=== PATIENT | female | born 1990 | race American Indian/Alaskan Native ===

== ENCOUNTER 2016-11-13 23:30 | Emergency (ER) | payer MEDICAID ==
[2016-11-13 23:44] VITALS: BP 109/76
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
[2016-11-14 00:29] LABS: CHLORIDE,CL 108 mmol/L (101-111); SODIUM,NA 143 mmol/L (135-145)
[2016-11-14] MEDS ORDERED: Iopamidol 612 MG/ML 75 ML Bottle IVPUSH ONE (00:36)
[2016-11-14] MEDS ORDERED: Acetaminophen/HYDROcodone 325-10 MG Tab PO ONE (01:25)
== END 2016-11-14 01:34 | disposition home or self-care (01) ==
LOC: DL.ED 23:30
DX: G89.18 Other acute postprocedural pain (principal); R10.84 Generalized abdominal pain; K59.01 Slow transit constipation; E11.9 Type 2 diabetes mellitus without complications; F17.210 Nicotine dependence, cigarettes, uncomplicated
CPT/HCPCS: 36415; 74177; 80053; 84703; 85025; 99285; A9270; Q9967

== ENCOUNTER 2016-11-15 16:44 | Emergency (ER) | payer MEDICAID ==
[2016-11-15 17:32] LABS: CHLORIDE,CL 108 mmol/L (101-111); SODIUM,NA 141 mmol/L (135-145)
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
[2016-11-15] MEDS ORDERED: Iopamidol 612 MG/ML 75 ML Bottle IVPUSH ONE (18:01)
[2016-11-15] MEDS ORDERED: Acetaminophen/HYDROcodone 325-10 MG Tab PO ONE (19:21)
[2016-11-15 19:31] VITALS: BP 116/78
== END 2016-11-15 19:33 | disposition home or self-care (01) ==
LOC: DL.ED 16:44
DX: S30.1XXA Contusion of abdominal wall, initial encounter (principal); K21.9 Gastro-esophageal reflux disease without esophagitis; E11.9 Type 2 diabetes mellitus without complications; Z98.51 Tubal ligation status; F17.210 Nicotine dependence, cigarettes, uncomplicated; Z88.5 Allergy status to narcotic agent; Z79.4 Long term (current) use of insulin; Y83.8 Other surgical procedures as the cause of abnormal reaction of the patient, or of later complication, without mention of misadventure at the time of the procedure
CPT/HCPCS: 36415; 74177; 80053; 80305; 81001; 81025; 82272; 85025; 99284; A9270; Q9967

== ENCOUNTER 2017-10-31 22:23 | Emergency (ER) | payer MEDICAID ==
[2017-10-31 23:36] LABS: CHLORIDE,CL 104 mmol/L (101-111); SODIUM,NA 137 mmol/L (135-145)
[2017-10-31 23:37] LABS: ACETAMINOPHEN < 10.0
[2017-10-31 23:58] VITALS: BP 111/75
[2017-11-01] MEDS ORDERED: Potassium Chloride 10 MEQ in Premix Bag 1 BAG IV ONE (00:28)
[2017-11-01] MEDS ORDERED: Ondansetron 4 MG/2 ML SDV IV ONE (00:29)
[2017-11-01] MEDS ORDERED: Sodium Chloride 0.9% 1,000 ML IV SCH (00:30)
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
--- NOTE | 2017-11-01 13:56 | EKG ---
10/31/2017- KENDALL CASTILLO - FINDINGS: EKG shows a heart rate of 67 beats per minute. Normal sinus rhythm. Normal EKG. [facility] /[id number]
== END 2017-11-01 02:34 ==
LOC: DL.ED 22:23
DX: T45.0X2A Poisoning by antiallergic and antiemetic drugs, intentional self-harm, initial encounter (principal); K21.9 Gastro-esophageal reflux disease without esophagitis; E11.9 Type 2 diabetes mellitus without complications; F17.210 Nicotine dependence, cigarettes, uncomplicated; Z88.5 Allergy status to narcotic agent; Z79.4 Long term (current) use of insulin; X83.8XXA Intentional self-harm by other specified means, initial encounter
CPT/HCPCS: 36415; 80053; 80305; 85025; 93005; 96361; 96365; 96375; 99285; G0480; J2405; J3480; J7030

== ENCOUNTER 2018-01-15 16:37 | Emergency (ER) | payer MEDICAID ==
[2018-01-15 16:53] VITALS: BP 133/72
[2018-01-15] MEDS ORDERED: Amoxicillin/Clavulanate K 875-125 MG Tab PO ONE (17:10)
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
== END 2018-01-15 17:21 | disposition home or self-care (01) ==
LOC: DL.ED 16:37
DX: S71.152A Open bite, left thigh, initial encounter (principal); E11.9 Type 2 diabetes mellitus without complications; Z88.5 Allergy status to narcotic agent; Z79.4 Long term (current) use of insulin; F17.210 Nicotine dependence, cigarettes, uncomplicated; W54.0XXA Bitten by dog, initial encounter
CPT/HCPCS: 99283; A9270-GY

== ENCOUNTER 2019-03-24 17:39 | Emergency (ER) | payer MEDICAID, OTHER ==
[2019-03-24 17:48] VITALS: BP 151/85; PULSE 69
[2019-03-24 18:35] LABS: ANION GAP 10.7; CHLORIDE,CL 104 mmol/L (101-111); SODIUM,NA 136 mmol/L (135-145)
--- NOTE | 2019-03-24 18:42 | EDM.PDOC ---
ED HPI GENERAL MEDICAL PROBLEM - General Chief Complaint: Abdominal Pain Stated Complaint: ABD PAIN/DIARREA WITH BLOOD Time Seen by Provider: 03/24/19 18:00 Source of Information: Reports: Patient History Limitations: Reports: No Limitations - History of Present Illness INITIAL COMMENTS - FREE TEXT/NARRATIVE: ED with c/o of intermittent sharp abdominal pain, pointing to epigastric area. Frequent diarrhea x 24 hours that looks like may be bloody. Reports fever last night none since some nausea though eating cheese crackers and drinking soda on arrival. No urinary c/o. No vomiting. Has not been taking insulin for greater than 2 weeks as RX out and has not been to [facility] to get refill. Has not been checking sugars. LMP one week ago. Abdomen Pain Score (Numeric/FACES): 8 - Related Data Allergies Allergy/AdvReac Type Severity Reaction Status Date / Time codeine Allergy Itching Verified 03/24/19 17:49 Home Meds: Home Meds Insulin Aspart [NovoLOG] 20 unit SUBCUT DAILY 11/15/16 [History] Insulin Detemir [Levemir] 20 unit SQ DAILY 11/15/16 [History] Past Medical History - Past Health History Medical/Surgical History: Denies Medical/Surgical History HEENT History: Reports: None Cardiovascular History: Reports: Heart Murmur Respiratory History: Reports: None Gastrointestinal History: Reports: GERD Genitourinary History: Reports: None Other Genitourinary History: "kidneys arent functioning very good" FI[employer] SC[employer]ER History: Reports: Musculoskeletal History: Reports: None Neurological History: Reports: None Psychiatric History: Reports: None Endocrine/Metabolic History: Reports: Diabetes, Type II Hematologic History: Reports: Blood Transfusion(s) Immunologic History: Reports: None Oncologic (Cancer) History: Reports: None Dermatologic History: Reports: None - Infectious Disease History Infectious Disease History: Reports: None - Past Surgical History Head Surgeries/Procedures: Reports: None HEENT Surgical History: Reports: None Cardiovascular Surgical History: Reports: None GI Surgical History: Reports: None Female Surgical History: Reports: Section, Tubal Ligation Musculoskeletal Surgical History: Reports: None Social & Family History - Tobacco Use Smoking Status *Q: Current Every Day Smoker Years of Tobacco use: 16 Packs/Tins Daily: 0.2 - Caffeine Use Caffeine Use: Reports: Coffee - Alcohol Use Date of Last Drink: 03/22/19 - Recreational Drug Use Recreational Drug Use: No ED ROS GENERAL - Review of Systems Review Of Systems: Comprehensive ROS is negative, except as noted in HPI. ED EXAM, GI/ABD - Physical Exam Exam: See Below Exam Limited By: No Limitations General Appearance: Alert, Mild Distress Eyes: Bilateral: EOMI Ears: Normal External Exam, Normal TMs Nose: Normal Inspection Throat/Mouth: Normal Inspection, Perioral Cyanosis Head: Atraumatic Neck: Normal Inspection Respiratory/Chest: No Respiratory Distress, Lungs Clear Cardiovascular: Normal Peripheral Pulses, Regular Rate, Rhythm GI/Abdominal Exam: Normal Bowel Sounds, Soft, Tender (mild upper) Rectal (Female) Exam: Normal Rectal Tone, Heme - Stool Extremities: Normal Inspection Neurological: Alert, Oriented Psychiatric: Normal Affect Skin Exam: Warm, Dry, Intact, Normal Color Course - Vital Signs Last Recorded V/S: Last Vital Signs Temp 98.5 F 03/24/19 17:45 Pulse 69 03/24/19 17:45 Resp 20 03/24/19 17:45 BP 151/85 H 03/24/19 17:45 Pulse Ox 100 03/24/19 17:45 - Orders/Labs/Meds Labs: Laboratory Tests 03/24/19 03/24/19 03/24/19 Range/Units 18:05 18:05 18:05 WBC 5.9 (5.0-10.0) 10^3/uL RBC 4.63 (4.2-5.4) 10^6/uL Hgb 9.5 L (12.0-16.0) g/dL Hct 32.1 L (37.0-47.0) % MCV 69.3 L (80-100) fL MCH 20.5 L (27.0-34.0) pg MCHC 29.6 L (33.0-35.0) g/dL Plt Count 362 (150-450) 10^3/uL Neut % (Auto) 46.4 (42.2-75.2) % Lymph % (Auto) 30.4 (20.5-50.1) % [place] % (Auto) 16.2 H (2-8) % Eos % (Auto) 6.5 H (1.0-3.0) % Baso % (Auto) 0.5 (0.0-1.0) % Sodium 136 (135-145) mmol/L Potassium 3.7 (3.6-5.0) mmol/L Chloride 104 (101-111) mmol/L Carbon Dioxide 25.0 (21.0-31.0) mmol/L Anion Gap 10.7 BUN 11 (7-18) mg/dL Creatinine 0.6 (0.6-1.3) mg/dL Est Cr Clr Drug Dosing 129.51 mL/min Estimated GFR (MDRD) > 60 BUN/Creatinine Ratio 18.33 Glucose 116 H (74-105) mg/dL POC Glucose (70-105) mg/dl Calcium 8.7 (8.4-10.2) mg/dl Total Bilirubin 0.6 (0.2-1.0) mg/dL AST 66 H (10-42) IU/L ALT 131 H (10-60) IU/L Alkaline Phosphatase 76 (42-121) IU/L Total Protein 7.5 (6.7-8.2) g/dl Albumin 3.7 (3.2-5.5) g/dl Globulin 3.8 Albumin/Globulin Ratio 0.97 Amylase 36 (28-100) U/L Lipase 29 (22-51) U/L Urine Color (YELLOW) Urine Appearance (CLEAR) Urine pH (5.0-9.0) Ur Specific [place] (1.005-1.030) Urine Protein (NEGATIVE) Urine Glucose (UA) (NEGATIVE) Urine Ketones (NEGATIVE) Urine Occult Blood (NEGATIVE) Urine Nitrite (NEGATIVE) Urine Bilirubin (NEGATIVE) Urine Urobilinogen (0.2-1.0) mg/dL Ur Leukocyte Esterase (NEGATIVE) Urine HCG, Qual Urine Opiates Screen (NEGATIVE) Ur Oxycodone Screen (NEGATIVE) Urine Methadone Screen (NEGATIVE) Ur Barbiturates Screen (NEGATIVE) U Tricyclic Antidepress (NEGATIVE) Ur Phencyclidine Scrn (NEGATIVE) Ur Amphetamine Screen (NEGATIVE) U Methamphetamines Scrn (NEGATIVE) Urine MDMA Screen (NEGATIVE) U Benzodiazepines Scrn (NEGATIVE) Urine Cocaine Screen (NEGATIVE) U Marijuana (THC) Screen (NEGATIVE) 03/24/19 03/24/19 03/24/19 Range/Units 18:22 18:31 18:31 WBC (5.0-10.0) 10^3/uL RBC (4.2-5.4) 10^6/uL Hgb (12.0-16.0) g/dL Hct (37.0-47.0) % MCV (80-100) fL MCH (27.0-34.0) pg MCHC (33.0-35.0) g/dL Plt Count (150-450) 10^3/uL Neut % (Auto) (42.2-75.2) % Lymph % (Auto) (20.5-50.1) % [place] % (Auto) (2-8) % Eos % (Auto) (1.0-3.0) % Baso % (Auto) (0.0-1.0) % Sodium (135-145) mmol/L Potassium (3.6-5.0) mmol/L Chloride (101-111) mmol/L Carbon Dioxide (21.0-31.0) mmol/L Anion Gap BUN (7-18) mg/dL Creatinine (0.6-1.3) mg/dL Est Cr Clr Drug Dosing mL/min Estimated GFR (MDRD) BUN/Creatinine Ratio Glucose (74-105) mg/dL POC Glucose 112 H (70-105) mg/dl Calcium (8.4-10.2) mg/dl Total Bilirubin (0.2-1.0) mg/dL AST (10-42) IU/L ALT (10-60) IU/L Alkaline Phosphatase (42-121) IU/L Total Protein (6.7-8.2) g/dl Albumin (3.2-5.5) g/dl Globulin Albumin/Globulin Ratio Amylase (28-100) U/L Lipase (22-51) U/L Urine Color Yellow (YELLOW) Urine Appearance Clear (CLEAR) Urine pH 5.5 (5.0-9.0) Ur Specific [place] 1.025 (1.005-1.030) Urine Protein Negative (NEGATIVE) Urine Glucose (UA) Negative (NEGATIVE) Urine Ketones Negative (NEGATIVE) Urine Occult Blood Negative (NEGATIVE) Urine Nitrite Negative (NEGATIVE) Urine Bilirubin Negative (NEGATIVE) Urine Urobilinogen 0.2 (0.2-1.0) mg/dL Ur Leukocyte Esterase Negative (NEGATIVE) Urine HCG, Qual Negative Urine Opiates Screen (NEGATIVE) Ur Oxycodone Screen (NEGATIVE) Urine Methadone Screen (NEGATIVE) Ur Barbiturates Screen (NEGATIVE) U Tricyclic Antidepress (NEGATIVE) Ur Phencyclidine Scrn (NEGATIVE) Ur Amphetamine Screen (NEGATIVE) U Methamphetamines Scrn (NEGATIVE) Urine MDMA Screen (NEGATIVE) U Benzodiazepines Scrn (NEGATIVE) Urine Cocaine Screen (NEGATIVE) U Marijuana (THC) Screen (NEGATIVE) 03/24/19 Range/Units 18:31 WBC (5.0-10.0) 10^3/uL RBC (4.2-5.4) 10^6/uL Hgb (12.0-16.0) g/dL Hct (37.0-47.0) % MCV (80-100) fL MCH (27.0-34.0) pg MCHC (33.0-35.0) g/dL Plt Count (150-450) 10^3/uL Neut % (Auto) (42.2-75.2) % Lymph % (Auto) (20.5-50.1) % [place] % (Auto) (2-8) % Eos % (Auto) (1.0-3.0) % Baso % (Auto) (0.0-1.0) % Sodium (135-145) mmol/L Potassium (3.6-5.0) mmol/L Chloride (101-111) mmol/L Carbon Dioxide (21.0-31.0) mmol/L Anion Gap BUN (7-18) mg/dL Creatinine (0.6-1.3) mg/dL Est Cr Clr Drug Dosing mL/min Estimated GFR (MDRD) BUN/Creatinine Ratio Glucose (74-105) mg/dL POC Glucose (70-105) mg/dl Calcium (8.4-10.2) mg/dl Total Bilirubin (0.2-1.0) mg/dL AST (10-42) IU/L ALT (10-60) IU/L Alkaline Phosphatase (42-121) IU/L Total Protein (6.7-8.2) g/dl Albumin (3.2-5.5) g/dl Globulin Albumin/Globulin Ratio Amylase (28-100) U/L Lipase (22-51) U/L Urine Color (YELLOW) Urine Appearance (CLEAR) Urine pH (5.0-9.0) Ur Specific [place] (1.005-1.030) Urine Protein (NEGATIVE) Urine Glucose (UA) (NEGATIVE) Urine Ketones (NEGATIVE) Urine Occult Blood (NEGATIVE) Urine Nitrite (NEGATIVE) Urine Bilirubin (NEGATIVE) Urine Urobilinogen (0.2-1.0) mg/dL Ur Leukocyte Esterase (NEGATIVE) Urine HCG, Qual Urine Opiates Screen Negative (NEGATIVE) Ur Oxycodone Screen Negative (NEGATIVE) Urine Methadone Screen Negative (NEGATIVE) Ur Barbiturates Screen Negative (NEGATIVE) U Tricyclic Antidepress Negative (NEGATIVE) Ur Phencyclidine Scrn Negative (NEGATIVE) Ur Amphetamine Screen Negative (NEGATIVE) U Methamphetamines Scrn Negative (NEGATIVE) Urine MDMA Screen Negative (NEGATIVE) U Benzodiazepines Scrn Negative (NEGATIVE) Urine Cocaine Screen Negative (NEGATIVE) U Marijuana (THC) Screen Negative (NEGATIVE) Meds: Medications Discontinued Medications Generic Name Dose Route Start Last Admin Trade Name Freq PRN Reason Stop Dose Admin Famotidine 20 mg 03/24/19 18:55 03/24/19 19:03 Pepcid IVPUSH 03/24/19 18:56 20 mg ONETIME ONE Administration Fentanyl 25 mcg 03/24/19 19:56 03/24/19 20:04 Sublimaze IVPUSH 03/24/19 19:57 25 mcg ONETIME ONE Administration Sodium Chloride 1,000 mls @ 999 mls/hr 03/24/19 18:55 03/24/19 19:03 Normal Saline IV 03/24/19 19:55 999 mls/hr .BOLUS ONE Administration Iopamidol 75 ml 03/24/19 18:55 03/24/19 19:11 Isovue-300 (61%) IVPUSH 03/24/19 18:56 75 ml ONETIME ONE Administration Departure - Departure Time of Disposition: 20:13 Disposition: Home, Self-Care 01 Condition: Good Clinical Impression: Gall stones Diarrhea Qualifiers: Diarrhea type: unspecified type Qualified Code(s): R19.7 - Diarrhea, unspecified Abdominal pain Qualifiers: Abdominal location: generalized Qualified Code(s): R10.84 - Generalized abdominal pain - Discharge Information *PRESCRIPTION DRUG MONITORING PROGRAM REVIEWED*: No *COPY OF PRESCRIPTION DRUG MONITORING REPORT IN PATIENT SIOBHAN: No Instructions: Cholelithiasis, Abdominal Pain, Adult, [id number] Forms: ED Department Discharge Additional Instructions: low fat diet bland diet clinic follow up with primary care monitor blood sugars omeprazole 20mg daily
[2019-03-24] MEDS: Famotidine 20 MG/2 ML SDV IVPUSH ONE (19:03)
[2019-03-24] MEDS: Sodium Chloride 0.9% 1,000 ML IV ONE (19:03)
[2019-03-24] MEDS: Iopamidol 612 MG/ML 75 ML Bottle IVPUSH ONE (19:11)
[2019-03-24] MEDS: fentaNYL 100 MCG/2 ML SDV IVPUSH ONE (20:04)
== END 2019-03-24 20:25 | disposition home or self-care (01) ==
LOC: DL.ED 17:39
DX: K80.80 Other cholelithiasis without obstruction (principal); E11.9 Type 2 diabetes mellitus without complications; K21.9 Gastro-esophageal reflux disease without esophagitis; F17.210 Nicotine dependence, cigarettes, uncomplicated; Z79.4 Long term (current) use of insulin; Z88.5 Allergy status to narcotic agent
CPT/HCPCS: 36415; 74177; 80053; 80305; 81003; 81025; 82150; 82272; 82962; 83690; 85025; 87045; 87046; 87493; 87899; 96361; 96374; 96375; 99284; J3010; J3490; J7030; Q9967

== ENCOUNTER 2019-05-03 06:51 | Day surgery (SDC) | payer MEDICAID, OTHER ==
[~2019-05-03 06:51] MED LIST: Dextrose 5%-0.45% NaCl 1,000 ML IV SCH; Midazolam 1 MG/ML 2 ML SDV ONE; Sodium Chloride 0.9% 10 ML Syringe FLUSH PRN; fentaNYL 100 MCG/2 ML SDV ONE
[2019-05-03] MEDS ORDERED: fentaNYL 100 MCG/2 ML SDV IV ONE ×3 (06:52→07:54)
[2019-05-03] MEDS ORDERED: Midazolam 1 MG/ML 2 ML SDV IV ONE ×3 (06:52→07:55)
--- NOTE | 2019-05-03 09:19 | OR ---
DATE: 05/03/2019 PROCEDURES: Esophagogastroduodenoscopy and multiple pinch biopsies. INSTRUMENT USED: [id number] Olympus video panendoscope. PREMEDICATIONS: No oral or topical anesthesia used. Fentanyl 100 mcg intravenous, Versed 2 mg intravenous. The procedure was done under pulse oximetry, BP recording, and collision worker. INDICATION: The patient with chronic hepatitis C and iron-deficiency anemia, with persistent abdominal pain unexplained. Esophagogastroduodenoscopy is performed for detection of any evidence for varices, to look for any erosive lesions, malignancy also under consideration, small bowel biopsies to be obtained if indicated. PROCEDURE IN DETAIL: The scope was passed with ease. Adequate visualization of the esophagus was made from proximal to distal areas. No upper esophageal lesions identified. No distal esophageal stricture. No uphill or downhill esophageal varices. No Chasity-Toure tear. No evidence of erosive esophagitis by Blanco criteria. No esophageal polyp or tumor mass identified. Z-line was seen at around 40 cm distal to the oral verge, configuration consistent with grade 1 by ZAP classification. No proximal gastric varices noted. Gastric fundus examination by retroflexion showed no polypoid lesions. No gastric ulcer, malignant mass, or vascular ectasia identified. Duodenal bulb showed no ulcer. Visualized second part of the duodenum was unremarkable. Multiple pinch biopsies, 4 in number, were taken from different areas of the second part of the duodenum, and tissues were also obtained from the duodenal bulb at 9 o'clock and 12 o'clock positions and sent for any histopathologic evidence of celiac disease. Multiple pinch biopsies were taken from the gastric antrum and proximal body and sent for PyloriTek test for H pylori and histopathology. No bleeding was noted from any of the visualized areas at the completion of examination. Photographs were taken of the duodenal bulb, gastric antrum, fundus, and distal esophagus. IMPRESSION: Normal study. The patient tolerated the procedure well. [facility] /[id number]
[2019-05-03 12:42] VITALS: BP 108/70; PULSE 55
== END 2019-05-03 10:55 | disposition home or self-care (01) ==
LOC: DL.ENDO 06:51
PROVIDERS: ATTEND Internal Medicine Gastroenterology
DX: K29.50 Unspecified chronic gastritis without bleeding (principal); B18.2 Chronic viral hepatitis C; D50.9 Iron deficiency anemia, unspecified; Z88.5 Allergy status to narcotic agent
CPT/HCPCS: 43239; 87077; J2250; J3010; J7042

== ENCOUNTER 2019-05-07 06:11 | Day surgery (SDC) | payer MEDICAID, OTHER ==
[2019-05-07] MEDS ORDERED: Midazolam 1 MG/ML 2 ML SDV IV ONE ×7 (06:12→07:01)
[2019-05-07] MEDS ORDERED: Midazolam 1 MG/ML 2 ML SDV ONE (06:12)
[2019-05-07] MEDS ORDERED: fentaNYL 100 MCG/2 ML SDV IV ONE ×6 (06:12→07:04)
[2019-05-07] MEDS ORDERED: fentaNYL 100 MCG/2 ML SDV ONE (06:13)
[2019-05-07] MEDS ORDERED: Sodium Chloride 0.9% 10 ML Syringe FLUSH PRN (06:42)
[2019-05-07] MEDS ORDERED: Dextrose 5%-0.45% NaCl 1,000 ML IV SCH (06:45)
--- NOTE | 2019-05-07 07:49 | OR ---
DATE: 05/07/2019 PROCEDURE: Total colonoscopy. INSTRUMENT USED: [id number]-[id number] Olympus video colonoscope. PREMEDICATIONS: Fentanyl 175 mcg intravenous, Versed 4 mg intravenous. The procedure was done under pulse oximetry, BP recording, and underwater roboticist. INDICATION: The patient with rectal bleeding and abdominal pain. Recent CT suggestive of colonic wall thickening in distal left colon. Colonoscopic examination is done for detection of any polypoid lesions and removal, endoscopic hemostasis therapy if needed. DESCRIPTION OF PROCEDURE: Initial rectal exam was unremarkable. Rigid anoscopy was normal. The colonoscope was passed with ease up to the ileocecal area. Photographs were taken of the normal-appearing cecum, identified by landmarks of appendiceal orifice and double-bulged ileocecal folds. No bleeding was noted from any of the visualized areas at the commencement of the examination. The bowel preparation was inadequate in the right colon, Graford scale 1 and in other regions Graford scale 2. No stricture. No vascular ectasia. No large isolated ulcerations seen. No evidence of diffuse inflammatory bowel disease in the form of friability, contact bleeding, or ulcerations. No polyp or tumor mass identified. Probing the proximal sides of folds and flexures using adequate distention and clearing up the stool material, withdrawal of the scope was made, cecum to rectum time over 6 minutes. No bleeding was noted from any of the visualized areas at the completion of examination. IMPRESSION: Normal study. The patient tolerated the procedure well. [facility] /[id number]
[2019-05-07 10:36] VITALS: BP 108/73; PULSE 72
== END 2019-05-07 09:19 | disposition home or self-care (01) ==
LOC: DL.ENDO 06:11
PROVIDERS: ATTEND Internal Medicine Gastroenterology
DX: K62.5 Hemorrhage of anus and rectum (principal); R10.9 Unspecified abdominal pain; K21.9 Gastro-esophageal reflux disease without esophagitis; B18.2 Chronic viral hepatitis C; K80.20 Calculus of gallbladder without cholecystitis without obstruction; F17.210 Nicotine dependence, cigarettes, uncomplicated; Z88.5 Allergy status to narcotic agent; Z98.51 Tubal ligation status
CPT/HCPCS: 45378; J2250; J3010; J7042; G0121

== ENCOUNTER 2021-09-20 12:02 | Inpatient (IN) | payer MEDICAID ==
[2021-09-20] MEDS ORDERED: Sodium Chloride 0.9% 1,000 ML IV ONE (12:27)
[2021-09-20] MEDS: Sodium Chloride 0.9% 10 ML Syringe FLUSH PRN ×2 (12:39→20:15)
[2021-09-20 13:27] LABS: CHLORIDE,CL 96 mmol/L (98-107); SODIUM,NA 131 mmol/L (136-145)
[2021-09-20 13:28] LABS: CORONAVIRUS COVID-19 NAA NEGATIVE (NEGATIVE)
[2021-09-20] MEDS ORDERED: Ketorolac 30 MG/ML SDV IVPUSH ONE (13:37)
[2021-09-20] MEDS ORDERED: Iopamidol 612 MG/ML 100 ML Bottle IVPUSH ONE (13:41)
[2021-09-20] MEDS ORDERED: Acetaminophen 500 MG Tab PO ONE (14:23)
[2021-09-20] MEDS ORDERED: Bisacodyl 5 MG Tab PO PRN (15:54)
[2021-09-20] MEDS ORDERED: Ondansetron 4 MG/2 ML SDV IVPUSH PRN (15:54)
[2021-09-20] MEDS ORDERED: Acetaminophen 325 MG Tab PO PRN (15:54)
[2021-09-20] MEDS: Acetaminophen/HYDROcodone 325-5 MG Tab PO PRN (19:28)
[2021-09-20] MEDS: Ibuprofen 400 MG Tab PO PRN (20:13)
[2021-09-21] MEDS: Ibuprofen 400 MG Tab PO PRN (04:39)
[2021-09-21] MEDS: Sodium Chloride 0.9% 10 ML Syringe FLUSH PRN ×2 (04:39→06:23)
[2021-09-21] MEDS: Acetaminophen/HYDROcodone 325-5 MG Tab PO PRN ×2 (04:40→09:59)
[2021-09-21] MEDS ORDERED: Omeprazole 20 MG Cap.CR PO SCH (06:00)
[2021-09-21 06:31] LABS: ANION GAP 15.5 mEq/L (7-13); CHLORIDE,CL 103 mmol/L (98-107); SODIUM,NA 138 mmol/L (136-145)
[2021-09-21] MEDS ORDERED: Iopamidol 755 Mg/ML 100 ML Bottle IVPUSH ONE (08:24)
[2021-09-21] MEDS ORDERED: Enoxaparin 40 MG/0.4 ML Syringe SUBCUT SCH (09:00)
[2021-09-21 12:04] VITALS: BP 106/82; PULSE 67
[2021-09-21] MEDS ORDERED: Acetaminophen/HYDROcodone 325-10 MG Tab PO ONE (12:19)
[2021-09-21] MEDS ORDERED: Ketorolac 30 MG/ML SDV IVPUSH PRN (13:18)
[2021-09-21] MEDS ORDERED: Piperacillin/Tazobactam 4.5 GM in Sodium Chloride 0.9% 100 ML IV SCH (13:30)
== END 2021-09-21 14:45 | DRG 602 ==
LOC: DL.ED 12:02 → DL.MS 14:35
PROVIDERS: ADMIT Internal Medicine; ATTEND Internal Medicine
DX: L03.114 Cellulitis of left upper limb (principal); J18.9 Pneumonia, unspecified organism; F15.10 Other stimulant abuse, uncomplicated; K21.9 Gastro-esophageal reflux disease without esophagitis; E11.9 Type 2 diabetes mellitus without complications; D64.9 Anemia, unspecified; K75.9 Inflammatory liver disease, unspecified; Z20.822 Contact with and (suspected) exposure to COVID-19; G89.29 Other chronic pain; F17.200 Nicotine dependence, unspecified, uncomplicated; M54.9 Dorsalgia, unspecified; Z86.19 Personal history of other infectious and parasitic diseases; Z88.5 Allergy status to narcotic agent; Z98.891 History of uterine scar from previous surgery; Z98.51 Tubal ligation status; Z87.898 Personal history of other specified conditions; Z79.4 Long term (current) use of insulin; Z79.899 Other long term (current) drug therapy
CPT/HCPCS: 0240U; 36415; 71045; 71260; 73201; 80048; 80053; 81001; 81025; 82550; 83605; 83880; 84484; 85025; 86140; 87040; 93005; 87077; 93010; 96365; 96375; 99284; 99285-25; A9270-GY; J1650; J1885; J2543; J3370; J3490; J7030; J7050; Q9967

== ENCOUNTER 2021-09-27 10:20 | Emergency (ER) | payer MEDICAID, OTHER ==
[2021-09-27] MEDS ORDERED: Sodium Chloride 0.9% 10 ML Syringe FLUSH PRN (10:34)
[2021-09-27 11:00] VITALS: BP 131/97; PULSE 69
[2021-09-27 11:46] LABS: ANION GAP 10.9 mEq/L (7-13); CHLORIDE,CL 105 mmol/L (98-107); SODIUM,NA 139 mmol/L (136-145)
[2021-09-27] MEDS ORDERED: HYDROmorphone 0.5 MG/0.5 ML Syringe IVPUSH ONE (11:54)
[2021-09-27] MEDS ORDERED: Iopamidol 755 Mg/ML 100 ML Bottle IVPUSH ONE (12:10)
== END 2021-09-27 14:09 | disposition home or self-care (01) ==
LOC: DL.ED 10:20
DX: L03.114 Cellulitis of left upper limb (principal); K21.9 Gastro-esophageal reflux disease without esophagitis; E11.9 Type 2 diabetes mellitus without complications; Z88.5 Allergy status to narcotic agent; Z79.899 Other long term (current) drug therapy; Z20.822 Contact with and (suspected) exposure to COVID-19
CPT/HCPCS: 36415; 71260; 73201; 80053; 83605; 83690; 83735; 84145; 85025; 85379; 86140; 87635; 93005; 93010; 96374; 99284; J1170; J3490; Q9967; U0002

== ENCOUNTER 2022-07-22 19:08 | Emergency (ER) | payer MEDICAID ==
[2022-07-22] MEDS ORDERED: Bupivacaine 0.5%/EPINEPHrine 1:200,000 10 ML SDV INJECT ONE (20:11)
[2022-07-22] MEDS ORDERED: Bupivacaine 0.5% 30 ML SDV INJECT ONE (20:32)
== END 2022-07-22 20:47 | disposition home or self-care (01) ==
LOC: MERGE 19:08 → DL.ED 19:08
DX: K04.7 Periapical abscess without sinus (principal); K02.9 Dental caries, unspecified; K21.9 Gastro-esophageal reflux disease without esophagitis; E11.9 Type 2 diabetes mellitus without complications; Z79.899 Other long term (current) drug therapy; Z88.5 Allergy status to narcotic agent
CPT/HCPCS: 64400; 99282; J3490

== ENCOUNTER 2022-12-31 15:37 | Emergency (ER) | payer MEDICAID | END 2022-12-31 17:30 | disposition left against medical advice (07) | LOC: DL.ED 15:37 | DX: Z53.21 Procedure and treatment not carried out due to patient leaving prior to being seen by health care provider (principal) ==

== ENCOUNTER 2025-01-17 14:04 | Emergency (ER) | payer SELFPAY ==
[2025-01-17] MEDS: Ketorolac 30 MG/ML SDV IM ONE (14:11)
[2025-01-17] MEDS ORDERED: Sodium Chloride 0.9% 10 ML Syringe FLUSH PRN (15:04)
[2025-01-17] MEDS ORDERED: Ondansetron 4 MG/2 ML SDV IVPUSH ONE (15:05)
[2025-01-17 15:26] LABS: PLATELET COUNT,PLT 447 10^3/uL (150-450); RED BLOOD CELL COUNT 3.73 10^6/uL (4.2-5.4); WHITE BLOOD CELL COUNT,WBC 14.2 10^3/uL (5.0-10.0)
[2025-01-17 15:41] LABS: BASOPHILS PERCENT AUTO 0.4 % (0.0-1.0); EOSINOPHILS PERCENT AUTO 0.4 % (1.0-3.0); LYMPHOCYTES PERCENT AUTO 6.0 % (20.5-50.1); MONOCYTES PERCENT AUTO 5.1 % (2-8); NEUTROPHILS PERCENT AUTO 88.1 % (42.2-75.2)
[2025-01-17 15:49] LABS: A/G RATIO 0.86; ALANINE AMINOTRANSFERASE,ALT 37.0 U/L (14-59); ASPARTATE AMNIOTRANSFERASE,AST 18.0 U/L (15-37); BILIRUBIN TOTAL 0.4 mg/dL (0.2-1.0); BLOOD UREA NITROGEN,BUN 16.0 mg/dL (7-18); CARBON DIOXIDE,CO2 22.0 mmol/L (21-32); CHLORIDE,CL 108.0 mmol/L (98-107); CREATININE 0.94 mg/dL (0.55-1.02); EST CRCL DRUG DOSING (CG) 75.17 mL/min; ESTIMATED GFR 81.0 mL/min (>=60); GLUCOSE RANDOM 186.0 mg/dL (70-99); POTASSIUM,K 3.1 mmol/L (3.5-5.1); PROTEIN TOTAL,TP 6.9 g/dL (6.4-8.2); SODIUM,NA 143.0 mmol/L (136-145)
[2025-01-17 17:18] LABS: LYMPHOCYTES PERCENT MAN 4 % (20-50); MONOCYTES PERCENT MAN 2 % (2-8); SEG NEUTROPHILS PERCENT MAN 94 % (42-75)
== END 2025-01-17 15:50 ==
LOC: DL.ED 14:04
DX: S36.892A Contusion of other intra-abdominal organs, initial encounter (principal); E11.9 Type 2 diabetes mellitus without complications; K21.9 Gastro-esophageal reflux disease without esophagitis; Z79.899 Other long term (current) drug therapy; Z88.5 Allergy status to narcotic agent; V18.0XXA Pedal cycle driver injured in noncollision transport accident in nontraffic accident, initial encounter; Y93.55 Activity, bike riding
CPT/HCPCS: 36415; 36430; 72192; 80053; 83735; 85025; 86850; 86900; 86901; 86920; 86922; 96365; 96372; 99284; 99285; J1885; J7030; J7040; P9016

== ENCOUNTER 2025-01-30 09:04 | Emergency (ER) | payer SELFPAY ==
[2025-01-30 09:39] LABS: BASOPHILS PERCENT AUTO 0.7 % (0.0-1.0); EOSINOPHILS PERCENT AUTO 5.4 % (1.0-3.0); LYMPHOCYTES PERCENT AUTO 12.5 % (20.5-50.1); MONOCYTES PERCENT AUTO 7.4 % (2-8); NEUTROPHILS PERCENT AUTO 74.0 % (42.2-75.2); PLATELET COUNT,PLT 606 10^3/uL (150-450); RED BLOOD CELL COUNT 3.30 10^6/uL (4.2-5.4); WHITE BLOOD CELL COUNT,WBC 6.1 10^3/uL (5.0-10.0)
[2025-01-30 09:59] LABS: INR 1.0 (0.9-1.2)
[2025-01-30 10:03] LABS: BLOOD UREA NITROGEN,BUN 10.0 mg/dL (7-18); CARBON DIOXIDE,CO2 26.0 mmol/L (21-32); CHLORIDE,CL 106.0 mmol/L (98-107); CREATININE 0.57 mg/dL (0.55-1.02); EST CRCL DRUG DOSING (CG) 126.26 mL/min; GLUCOSE RANDOM 89.0 mg/dL (70-99); POTASSIUM,K 3.6 mmol/L (3.5-5.1); SODIUM,NA 141.0 mmol/L (136-145)
[2025-01-30 10:04] LABS: ESTIMATED GFR 121.0 mL/min (>=60)
[2025-01-30] MEDS: Iopamidol 612 MG/ML 100 ML Bottle IVPUSH ONE (10:24)
[2025-01-30] MEDS: Ondansetron 4 MG/2 ML SDV IVPUSH ONE (10:36)
[2025-01-30] MEDS: Ondansetron 4 MG/2 ML SDV ONE (10:37)
== END 2025-01-30 11:44 | disposition home or self-care (01) ==
LOC: DL.ED 09:04
DX: S36.899A Unspecified injury of other intra-abdominal organs, initial encounter (principal); R10.84 Generalized abdominal pain; E11.9 Type 2 diabetes mellitus without complications; Z88.5 Allergy status to narcotic agent; Z79.899 Other long term (current) drug therapy; V18.0XXA Pedal cycle driver injured in noncollision transport accident in nontraffic accident, initial encounter; Y93.89 Activity, other specified
CPT/HCPCS: 36415; 74177; 80048; 85025; 85610; 96374; 96375; 99284; J1171; J2405; Q9967